=== PATIENT | male | born 1985 | race African-American/Black ===

== ENCOUNTER 2020-07-17 13:27 | Inpatient (IN) | payer BC ==
[~2020-07-17] VITALS: Ht 188 cm; Wt 203.2 kg
--- NOTE | 2020-07-17 13:50 | NUR ---
BIB [facility] 8[facility], HE CALLED BECAUSE HE COULDN'T SIT IN A W/C TO F/U WITH [facility] APPT. C/O [place] LOWER EXTREMITY PAIN 03/08. PATIENT CAME IN WEARING IMOBILIZERS ON BOTH LOWER LEG. PREDAL PULSES PRESENT. NO APPARENT S/S POOR CIRCULATION NOTED. WILL CONTINUE TO MONITOR THE PATIENT.
[2020-07-17] MEDS ORDERED: IBUP-1955 PO (14:54)
[2020-07-17] MEDS ORDERED: HYDR-3972 PO (14:54)
[2020-07-17] MEDS ORDERED: ONDANSETRON HCL/PF 4 MG/2 ML VIAL IVP PRN (19:30)
[2020-07-17] MEDS ORDERED: MAGNESIUM HYDROXIDE 30 ML UDC PO PRN (19:30)
[2020-07-17] MEDS ORDERED: ACETAMINOPHEN 325 MG TABLET PO PRN (19:30)
[2020-07-17] MEDS ORDERED: MAG HYDROX/AL HYDROX/SIMETH 30 ML UDC PO PRN (19:30)
[2020-07-17] MEDS ORDERED: HYDROCODONE/APAP 5/325MG TABLET PO PRN (19:30)
[2020-07-17] MEDS ORDERED: Z GUARD REMEDY 2 OZ OINT TP PRN (19:30)
[2020-07-17] MEDS ORDERED: HYDROCODONE/APAP 10/325MG TABLET PO PRN (19:30)
[2020-07-17] MEDS ORDERED: TEMAZEPAM 15 MG CAPSULE PO PRN (19:30)
--- NOTE | 2020-07-17 19:50 | NUR ---
Hernan cui in EDM - 07/17/20 at 2009 by [facility] attempted to give report, will be called back.
--- NOTE | 2020-07-17 20:23 | NUR ---
rapid covid swab sample collected and sent to the lab
--- NOTE | 2020-07-17 23:17 | NUR ---
BED ASSIGNMENT [id number]
--- NOTE | 2020-07-18 00:16 | NUR ---
REPORTGIVEN TO KIERRA DREW FOR [facility].
[2020-07-18 00:30] VITALS: BP 127/77
--- NOTE | 2020-07-18 00:30 | NUR ---
RN NOTES PM SHIFT ADMITTED PATIENT FROM ED DUE TO INABILITY TO AMBULATE DUE TO BILATERAL KNEE TORN LIGAMENT, ALERT/ORIENTED X4, STABLE ON ROOM AIR, LUNG SOUNDS ARE CLEAR, ABDOMEN SOFT AND NON-TENDER, ACTIVE BOWEL SOUNDS, BILATERAL KNEE IMMOBILIZER, BEDREST, SKIN INTACT, URINAL AT THE BEDSIDE. PER PATIENT, BASELINE IS AMBULATORY, PLAYS SOCCER AND HIKING.
[2020-07-18] MEDS: ENOXAPARIN SODIUM 40 MG/0.4 ML DISP.SYRIN SQ SCH ×2 (00:50→19:43)
--- NOTE | 2020-07-18 02:00 | NUR ---
RN NOTES PATIENT HOME MEDS NORCO 325 WITH 6 TABS AND IBUPROFEN, MEDS WILL BE TURN OVER TO PHARMACY, PATIENT SIGNED PACKET
--- NOTE | 2020-07-18 06:15 | NUR ---
RN NOTES PM SHIFT ALERT/ORIENTED X4, ROOM AIR, NO COMPLAIN OF PAIN, UNABLE TO AMBULATE, BEDREST, USES URINAL TO VOID, CM CONSULT FOR PLACEMENT TO SNF OR ASSISTED LIVING. NEEDS PREVIOUS RECORDS FROM [place] [facility].
[2020-07-18 07:26] LABS: BASOPHILS # (AUTO) 0.1 /CMM (0.0-0.2); BASOPHILS % (AUTO) 0.7 % (0.0-2.0); EOSINOPHILS % (AUTO) 2.9 % (0.0-6.0); HEMATOCRIT 39 % (39-51); HEMOGLOBIN 13.1 g/dL (13.5-17.5); LYMPHOCYTES # (AUTO) 1.8 /CMM (0.8-4.8); LYMPHOCYTES % (AUTO) 22.9 % (20.0-44.0); MEAN CORPUSCULAR HGB CONC 34 g/dl (31.0-36.0); MEAN CORPUSCULAR VOLUME 81 fL (80-96); MONOCYTES # (AUTO) 0.6 /CMM (0.1-1.30); MONOCYTES % (AUTO) 8.1 % (2.0-12.0); NEUTROPHILS # (AUTO) 5.2 /CMM (1.8-8.9); NEUTROPHILS % (AUTO) 65.4 % (43.0-81.0); PLATELET COUNT (AUTO) 356 /CMM (150-450); RED BLOOD CELL COUNT(AUTO) 4.79 MIL/uL (4.5-6.0)
[2020-07-18 07:40] LABS: CALCIUM, SERUM 8.7 mg/dL (8.5-10.1); CREATININE 0.7 mg/dL (0.6-1.3); MAGNESIUM 2.2 mg/dL (1.8-2.4); PHOSPHORUS 3.4 mg/dL (2.5-4.9)
[2020-07-18 07:48] LABS: THYROID STIMULATING HORMONE 2.684 uIU/mL (0.358-3.74)
[2020-07-18 08:00] VITALS: BP 128/72
--- NOTE | 2020-07-18 08:00 | NUR ---
RN OPENING NOTE RECEIVED PATIENT IN BED, AO X 4, ABLE TO RESPONDS ALL STIMULI. PATIENT DENIES[ DISTRESS OR DISCOMFORT. SKIN IS WARM TO TOUCH, KEEP CLEAN/DRY INTACT IV SITE. RESPIRATORY EVEN AND UNLABORED IN ROOM AIR. KEPT ELEVATED HOB FOR ENSURE AIR AND ASPIRATION PRECAUTION, ALSO LOWEST BED POSITION FOR SAFETY. CALL LIGHT WITHIN REACH, WILL CONTINUE TO MONITOR.
--- NOTE | 2020-07-18 10:00 | NUR ---
PATIENT SIGNED MEDICAL RECORD RELEASE FORM, CALLED [facility] BUT THEY OPEN M-F, WILL CALL BACK ON MONDAY TO GET MEDICAL RECORD NUMBER.
--- NOTE | 2020-07-18 18:22 | NUR ---
RN CLOSING NOTE PATIENT RESTING IN BED, REMAINS AO X 4, DENIES DISTRESS OR DISCOMFORT. SKIN IS WARM TOUCH, KEEP CLEAN/DRY INTACT IV SITE, NO S/S OF RESPIRATORY DISTRESS OBSERVED. RESPIRATORY EVEN AND UNLABORED IN ROOM AIR. KEPT ELEVATED HOB FOR ENSURE AIRWAY, ALSO LOWEST BED POSITION FOR SAFETY. CALL LIGHT WITHIN REACH, WILL ENDORSE INTERNET ASSESSOR
--- NOTE | 2020-07-18 19:24 | NUR ---
MS RN NOTES RECEIVED PT RESTING IN BED, AO X 4, DENIES DISTRESS OR DISCOMFORT. SKIN IS WARM TOUCH, KEEP CLEAN/DRY INTACT IV SITE, NO S/S OF RESPIRATORY DISTRESS OBSERVED. RESPIRATORY EVEN AND UNLABORED IN ROOM AIR. ALL NURSING NEED MET AT THIS TIME.KEPT ELEVATED HOB FOR ENSURE AIRWAY, ALSO LOWEST BED POSITION FOR SAFETY. CALL LIGHT WITHIN REACH, WILL CONTINUE TO MONITOR.
[2020-07-18 20:00] VITALS: BP 117/66
--- NOTE | 2020-07-19 06:37 | NUR ---
MS RN NOTES PT RESTING IN BED, AO X 4, DENIES DISTRESS OR DISCOMFORT. SKIN IS WARM TOUCH, KEEP CLEAN/DRY INTACT IV SITE, NO S/S OF RESPIRATORY DISTRESS OBSERVED. RESPIRATORY EVEN AND UNLABORED IN ROOM AIR. ALL NURSING NEED MET AT THIS TIME.KEPT ELEVATED HOB FOR ENSURE AIRWAY ALL DUE MEDS GIVEN AND TOLERATED WELL. ALL NURSING NEEDS MET. ALSO LOWEST BED POSITION FOR SAFETY. CALL LIGHT WITHIN REACH, WILL CONTINUE TO MONITOR.
--- NOTE | 2020-07-19 08:00 | NUR ---
RN OPENING NOTE RECEIVED PATIENT IN BED, AO X 4, ABLE TO RESPONDS ALL STIMULI. DENIES DISTRESS OR DISCOMFORT. SKIN IS WARM TO TOUCH, KEEP CLEAN/DRY INTACT IV SITE. RESPIRATORY EVEN AND UNLABORED IN ROOM AIR. KEPT ELEVATED HOB FOR ENSURE AIR AND ASPIRATION PRECAUTION, ALSO LOWEST BED POSITION FOR SAFETY. CALL LIGHT WITHIN REACH, WILL CONTINUE TO MONITOR.
--- NOTE | 2020-07-19 16:02 | NUR ---
PATIENT HAS ORDER C PAP AT NIGHT TIME, REMAINDERED RT.
--- NOTE | 2020-07-19 17:40 | NUR ---
RN CLOSING NOTE PATIENT RESTING IN BED, REMAINS AO X 4. SKIN IS WARM TOUCH, KEEP CLEAN/DRY INTACT IV SITE. RESPIRATORY EVEN AND UNLABORED IN ROOM AIR. PATIENT IN IMMOBILIZER ON BILATERAL LEGS, AND DENIES DISTRESS. KEPT ELEVATED HOB FOR ENSURE AIRWAY AND ASPIRATION PRECAUTION, ALSO LOWEST BED POSITION FOR SAFETY. BED ALARM IS ON AT ALL THE TIMES. CALL LIGHT WITHIN REACH, WILL ENDORSE FUR MIXER OPERATOR
[2020-07-19] MEDS: ENOXAPARIN SODIUM 40 MG/0.4 ML DISP.SYRIN SQ SCH (19:40)
--- NOTE | 2020-07-19 20:00 | NUR ---
MS RN OPENING NOTE RECEIVED PATIENT AWAKE IN BED. A/O X4. PT IS STABLE ON ROOM AIR. NO SOB NOTED. NO S/S OF RESPIRATORY DISTRESS. PT IS ON BEDREST. PT HAS NO C/O PAIN AT THIS TIME. IV ACCESS IN LEFT AC #20, SALINE-LOCKED. IV IS INTACT, PATENT, AND FLUSHING WELL. SAFETY MEASURES MAINTAINED. BED IN LOWEST LOCKED POSITION, HOB ELEVATED, SIDE RAILS UP X2. CALL LIGHT AND TABLE WITHIN REACH. WILL CONTINUE WITH PLAN OF CARE.
[2020-07-19 21:03] VITALS: BP 120/80
--- NOTE | 2020-07-20 06:37 | NUR ---
MS RN CLOSING NOTE PT IS AWAKE IN BED AT THIS TIME. A/O X4. PT IS STABLE ON ROOM AIR. NO SOB NOTED. NO S/S OF RESPIRATORY DISTRESS. PT IS ON BEDREST. PT HAS NO C/O PAIN AT THIS TIME. IV ACCESS IS INTACT, PATENT, AND FLUSHING WELL. ALL NEEDS HAVE BEEN MET. SAFETY MEASURES MAINTAINED AT ALL TIMES. BED IN LOWEST LOCKED POSITION, HOB ELEVATED, SIDE RAILS UP X2. CALL LIGHT AND TABLE WITHIN REACH. WILL ENDORSE TO ONCOMING NURSE FOR CONTINUITY OF CARE.
--- NOTE | 2020-07-20 07:03 | NUR ---
MS RN OPENING NOTE RECEIVED PATIENT AWAKE IN BED. A/O X4. PT IS STABLE ON ROOM AIR. NO SOB NOTED. NO S/S OF RESPIRATORY DISTRESS. PT IS ON BEDREST. PT HAS NO C/O PAIN AT THIS TIME. IV ACCESS IN LEFT AC 20 IV IS INTACT, PATENT, AND FLUSHING WELL. SAFETY MEASURES MAINTAINED. BED IN LOWEST LOCKED POSITION, HOB ELEVATED, SIDE RAILS UP X2. CALL LIGHT AND TABLE WITHIN REACH.
[2020-07-20 08:00] VITALS: BP 122/89
[2020-07-20 16:00] VITALS: BP 147/100
[2020-07-20 20:00] VITALS: BP 124/89
[2020-07-20] MEDS: ENOXAPARIN SODIUM 40 MG/0.4 ML DISP.SYRIN SQ SCH (20:14)
--- NOTE | 2020-07-20 22:13 | NUR ---
CALL MADE TO [facility]. COMPANY SAYS THAT UNIT IS ON SCENE SO THEY SHOULD BE EXPECTED SOON. SIDE PANEL PADDER TIME WAS ORIGINALLY SCHEDULED FOR 2099.
[2020-07-20 22:25] VITALS: BP 140/95
--- NOTE | 2020-07-20 22:25 | NUR ---
[facility] HERE TO PILOT INSTRUCTOR PATIENT. REPORT GIVEN TO [facility]. PATIENT IV REMOVED FROM LEFT FOREARM CATHETER INTACT. NO S/S OF COMPLICATIONS [facility] VS WNL.
== END 2020-07-20 22:30 | DRG 563 ==
LOC: ER 13:32 → MED 23:45
PROVIDERS: ADMIT Nurse Practitioner Acute Care; ATTEND Nurse Practitioner Acute Care
DX: S83.8X1A Sprain of other specified parts of right knee, initial encounter (principal); Z68.43 Body mass index [BMI] 50.0-59.9, adult; E44.0 Moderate protein-calorie malnutrition; S83.8X2A Sprain of other specified parts of left knee, initial encounter; R26.9 Unspecified abnormalities of gait and mobility; E66.01 Morbid (severe) obesity due to excess calories; G47.33 Obstructive sleep apnea (adult) (pediatric); Y93.66 Activity, soccer; Y92.322 Soccer field as the place of occurrence of the external cause; Z71.3 Dietary counseling and surveillance; Z20.822 Contact with and (suspected) exposure to COVID-19
CPT/HCPCS: 36415; 73564-TC; 80048-TC; 80061-TC; 83735-TC; 84100-TC; 84443-TC; 85025-TC; 87081-TC; 97110-TC; 97530-TC; C9803; G0378; J1650